=== PATIENT | female | born 1985 | race Caucasian/White ===

== ENCOUNTER 2019-12-01 14:21 | Emergency (ER) | payer OTHER, SELFPAY ==
--- NOTE | 2019-12-01 14:29 | ED.URI ---
HPI - URI/Sore Throat General Chief Complaint: Upper Respiratory Infection Stated Complaint: fever/chills/body aches/sore throat Time Seen by Provider: 12/01/19 14:40 Source: patient and RN notes reviewed Mode of arrival: ambulatory Limitations: no limitations History of Present Illness HPI Narrative: 34 year old female who presents to [facility] with complaints of sore throat since yesterday, right ear pain and body aches and chills which started today. Patient states that she had fever yesterday up to 101F but no fever this morning states temp was 98.5F. Patient states that she has had clear to light yellow nasal drainage, patient denies any cough or any shortness of breath, no recent travel. Patient states that she has been taking Mucinex for her symptoms. MD elicited complaint: fever, sore throat, rhinorrhea and nasal congestion Onset (ago): day(s) (1) Consistency: constant Severity: severe Pain scale (0-10): 8 Description of mucous: yellow Exacerbating factors: swallowing Relieving factors: nothing Associated symptoms: fever, myalgias, rhinorrhea, nasal congestion and sore throat Treatments prior to arrival: other (Mucinex) Related Data Home Medications Medication Instructions Recorded Confirmed drospirenone-estradiol 1 tablet PO DAILY 12/01/19 12/01/19 topiramate 100 mg PO DAILY 12/01/19 12/01/19 Allergies Allergy/AdvReac Type Severity Reaction Status Date / Time sulfamethoxazole Allergy Mild Hives / Verified 12/01/19 14:46 Red Face trimethoprim Allergy Mild Hives / Verified 12/01/19 14:46 Red Face Review of Systems Review of Systems: Narrative: CONSTITUTIONAL: Positive fever, chills, or sweats. EYES: Denies visual changes, redness, or discharge. ENT:Positive rhinorrhea, congestion, sore throat, right otalgia. CARDIOVASCULAR: Denies chest pain, palpitations, or edema. RESPIRATORY: Denies cough or dyspnea. GASTROINTESTINAL: Denies abdominal pain, nausea, vomiting, or diarrhea. GENITOURINARY: Denies dysuria or hematuria. SKIN: Denies rash or itching. MUSCULOSKELETAL: Denies back pain, joint pain, or myalgia. NEUROLOGIC: Denies headache, numbness, or weakness. PSYCHIATRIC: Denies anxiety or depression. All systems reviewed & are unremarkable except as noted in HPI and below PMFSH Past Medical History Medical History (Updated 12/01/19 @ 15:28 by Savita Valiente NP) Migraines Surgical History Surgical History (Updated 12/01/19 @ 15:26 by Savita Valiente NP) No significant past surgical history Social History Social History (Updated 12/01/19 @ 14:57 by Savita Valiente NP) Smoking status: Never smoker Second hand tobacco smoke exposure: No Living arrangements: with family Gender identity (if verbalized by the patient): Female Comments At time of signature, agree with nursing past medical, surgical, social history. There is no relevant family history pertinent to the presenting complaint Exam Narrative: Exam Narrative: GENERAL: Well-appearing, well-nourished, and in no acute distress. HEAD: Normocephalic, atraumatic. EYES: PERRLA and EOMI. ENT: Nares red, clear to yellowish rhinorrhea no epistaxis. Mucous membranes moist.TM's normal with good light reflex, throat red,swollen tonsils with white lesions NECK: Supple.lymphadenopathy CHEST: Clear to auscultation. No respiratory distress.SAO2 97% on room air HEART: Regular rate and rhythm. No murmur heard. Normal peripheral pulses. ABDOMEN: Soft, nontender, nondistended, normal active bowel sounds. EXTREMITIES: Normal range of motion. No edema. SKIN: Warm, dry, no rash. NEURO: No focal deficits. Alert and oriented x3. Course Vital Signs Vital signs: Vital Signs Temperature 37.3 C 12/01/19 14:30 Pulse Rate 97 12/01/19 14:30 Respiratory Rate 14 12/01/19 14:30 Blood Pressure 122/84 12/01/19 14:30 Pulse Oximetry 97 12/01/19 14:30 Temperature 37.3 C 12/01/19 14:30 Pulse Rate 97 12/01/19 14:30 Res
[2019-12-01 14:30] VITALS: BP 122/84; PULSE 97; RESP 14; TEMP 37.3; O2SAT 97
== END 2019-12-01 15:21 | disposition home or self-care (01) ==
PROVIDERS: Emergency Provider Registered Nurse
DX: J03.90 Acute tonsillitis, unspecified (principal); J06.9 Acute upper respiratory infection, unspecified
CPT/HCPCS: 87081; 87804; 87880; 99213; G0463

== ENCOUNTER 2022-08-01 17:18 | Emergency (ER) | payer OTHER, SELFPAY ==
[2022-08-01 17:24] VITALS: BP 133/87; PULSE 93; RESP 16; TEMP 36.8; O2SAT 97
--- NOTE | 2022-08-01 18:01 | ED.URI ---
HPI - URI/Sore Throat General Chief Complaint: Upper Respiratory Infection Stated Complaint: Cough/Sore Throat Source: patient and RN notes reviewed Mode of arrival: ambulatory Limitations: no limitations History of Present Illness HPI Narrative: 37-year-old female presenting for complaint of cough over the last week. Started with sinus congestion, drainage, sore throat about 3 days ago. Patient states his cough is worse at night causing her difficulty sleeping. She denies shortness of breath, wheezing, nausea, vomiting, diarrhea, fever chills. She is using any [id number] medications for cough without significant relief. MD elicited complaint: cough Related Data Home Medications Medication Instructions Recorded Confirmed drospirenone 0.25 mg-estradiol 0.5 1 tablet PO DAILY 12/01/19 12/01/19 mg tablet Allergies Allergy/AdvReac Type Severity Reaction Status Date / Time sulfamethoxazole Allergy Mild Hives / Verified 12/01/19 14:46 Red Face trimethoprim Allergy Mild Hives / Verified 12/01/19 14:46 Red Face Review of Systems Review of Systems: ROS per HPI [facility] Past Medical History Medical History Migraines Surgical History Surgical History No significant past surgical history Social History Social History Smoking status: Never smoker Second hand tobacco smoke exposure: No Gender identity (if verbalized by the patient): Female Exam Narrative: GENERAL: Ill-appearing, nontoxic EYES: PERRLA, conjunctivae clear ENT: Mucous membranes moist. TM pearly crow with dull light reflex bilaterally; no tragal tenderness. Oropharynx erythematous without lesions or exudate, no drooling, no hoarseness, no trismus, uvula midline. CHEST: Clear to auscultation, breath sounds equal. No wheezing, rhonchi, rales, or stridor. No respiratory distress, speaks in full sentences. HEART: Regular rate and rhythm. No murmur heard. SKIN: Warm, dry, no rash. NEURO: Alert and oriented x3. PSYCH: Normal mood and affect Course Course Emergency Course: Patient is aware of diagnosis, understands and agrees to treatment plan. Anticipatory guidance given. Patient agrees to follow-up as directed and is aware of reasons to seek care at the emergency department. Portions of this record may have been created with voice recognition software Level of Care: Express Care Visit Vital Signs Vital signs: Vital Signs Temperature 98.2 F 08/01/22 17:24 Pulse Rate 93 08/01/22 17:24 Respiratory Rate 16 08/01/22 17:24 Blood Pressure 133/87 08/01/22 17:24 Pulse Oximetry 97 08/01/22 17:24 Oxygen Delivery Room Air 08/01/22 17:24 Temperature 98.2 F 08/01/22 17:24 Pulse Rate 93 08/01/22 17:24 Respiratory Rate 16 08/01/22 17:24 Blood Pressure 133/87 08/01/22 17:24 Pulse Oximetry 97 08/01/22 17:24 Oxygen Delivery Room Air 08/01/22 17:24 reviewed MDM - URI/Sore Throat MDM Narrative Medical decision making narrative: Advised supportive measures and signs/symptoms to go to the ER. Pt is appropriate for outpt treatment and f/u. Differential Diagnosis Differential diagnosis: Likely upper respiratory infection, sinusitis and viral infection Discharge Plan Discharge Clinical Impression: Upper respiratory infection Patient Disposition: Home, Self-Care Condition: Stable Instructions: Acute Cough (ED) Additional Instructions: Recommend Flonase spray and Zyrtec (or Claritin/Diana) over the counter Cough syrup may cause drowsiness; avoid driving or take it at night time. Tylenol 1000mg every 8 hours as needed for pain Symptomatic treatment includes: rest, fluids, and increase humidity of the air at home. Follow up with your primary care provider in 1 week. Go to the ER for worsening symptoms or
== END 2022-08-01 18:11 | disposition home or self-care (01) ==
PROVIDERS: Emergency Provider Nurse Practitioner Family
DX: J06.9 Acute upper respiratory infection, unspecified (principal)
CPT/HCPCS: 99213; G0463